=== PATIENT | female | born 1985 | race Caucasian/White ===

== ENCOUNTER → 2017-08-26 | Outpatient (CLI) | payer OTHER ==
[2017-08-26 14:31] LABS: ALBUMIN 3.8 GM/DL (3.2-5.2); ALBUMIN/GLOBULIN RATIO 1.19 (1.00-1.93); BILIRUBIN,TOTAL 0.5 MG/DL (0.2-1.0); CALCIUM LEVEL 8.9 MG/DL (8.5-10.1); CREATININE FOR GFR 1.2 MG/DL (0.55-1.02); GLOMERULAR FILTRATION RATE 55.4 (>60); POTASSIUM SERUM 4.6 MEQ/L (3.5-5.1)
== END ==
LOC: M SMT 10:02
PROVIDERS: ATTEND Physician Assistant Medical
DX: R53.83 Other fatigue (principal)

== ENCOUNTER → 2017-09-13 | Outpatient (REF) | payer OTHER | LOC: M LAB REF 16:54 | PROVIDERS: ATTEND Physician Assistant Medical | DX: R35.0 Frequency of micturition (principal) ==

== ENCOUNTER → 2017-10-12 | Outpatient (REF) | payer OTHER ==
[2017-10-12 13:32] LABS: FREE T4 1.08 NG/DL (0.76-1.46)
== END ==
LOC: M LAB REF 12:39
DX: E87.2 Acidosis (principal); N18.3 Chronic kidney disease, stage 3 (moderate)
CPT/HCPCS: 84443

== ENCOUNTER → 2018-05-22 | Outpatient (REF) | payer OTHER ==
[2018-05-24 08:06] LABS: CYSTATIN C 0.91 mg/L (0.53-0.95)
== END ==
LOC: M LAB REF 13:33
DX: R94.4 Abnormal results of kidney function studies (principal)
CPT/HCPCS: 81229

== ENCOUNTER → 2019-02-27 | Outpatient (REF) | payer OTHER | LOC: M WUC 12:50 | PROVIDERS: ATTEND Physician Assistant | DX: N39.0 Urinary tract infection, site not specified (principal) ==

== ENCOUNTER → 2019-06-12 | Outpatient (CLI) | payer OTHER ==
[2019-06-12 17:22] LABS: ALBUMIN 3.5 GM/DL (3.2-5.2); ALT/SGPT 19 U/L (12-78); BASO % 0.4 % (0.0-1.0); BILIRUBIN,TOTAL 0.2 MG/DL (0.2-1.0); BLOOD UREA NITROGEN 8 MG/DL (7-18); CALCIUM LEVEL 9.1 MG/DL (8.5-10.1); CARBON DIOXIDE LEVEL 25 MEQ/L (21-32); CHLORIDE LEVEL 106 MEQ/L (98-107); CREATININE FOR GFR 0.86 MG/DL (0.55-1.30); EOS # 0.1 10^3/uL (0.0-0.50); EOS % 0.7 % (0.0-3.0); GLOMERULAR FILTRATION RATE > 60.0 (>60); GLUCOSE, FASTING 70 MG/DL (70-100); HEMATOCRIT 37.8 % (36.0-47.0); HEMOGLOBIN 12.9 g/dl (12.0-15.5); LYMPH # 2.1 10^3/uL (1.5-4.5); LYMPH % 19.7 % (24.0-44.0); MEAN CORPUSCULAR HGB CONC 34.1 g/dl (32.0-36.5); MEAN CORPUSCULAR VOLUME 93.8 fl (80.0-96.0); MONO # 0.7 10^3/uL (0.0-0.8); MONO % 6.2 % (0.0-5.0); NEUTROPHILS # 7.7 10^3/uL (1.8-7.7); NEUTROPHILS % 72.5 % (36.0-66.0); PLATELET COUNT, AUTOMATED 263 10^3/uL (150-450); POTASSIUM SERUM 3.9 MEQ/L (3.5-5.1); RED BLOOD COUNT 4.03 10^6/uL (4.00-5.40); SODIUM LEVEL 139 MEQ/L (136-145); TOTAL PROTEIN 6.8 GM/DL (6.4-8.2); WHITE BLOOD COUNT 10.5 10^3/uL (4.0-10.0)
[2019-06-12 17:45] LABS: TOTAL PROTEIN,RANDOM URINE 11.9 MG/DL (0.0-12.0)
[2019-06-13 10:05] LABS: RUBELLA IgG QUALITATIVE IMMUNE (IMMUNE)
[2019-06-13 10:34] LABS: HEPATITIS C VIRUS ABY INDEX < 0.0 INDEX (<0.8)
[2019-06-13 10:35] LABS: HIV 1&2 SCREEN CENTAUR NEGATIVE (NEGATIVE)
[2019-06-13 13:04] LABS: CHLAMYDIA DNA AMPLIFICATION NEGATIVE (NEGATIVE); GC DNA AMPLIFICATION NEGATIVE (NEGATIVE)
== END ==
LOC: M SMT 13:23
PROVIDERS: ATTEND Obstetrics & Gynecology
DX: Z34.81 Encounter for supervision of other normal pregnancy, first trimester (principal); N18.9 Chronic kidney disease, unspecified; Z3A.00 Weeks of gestation of pregnancy not specified

== ENCOUNTER → 2019-07-10 | Outpatient (CLI) | payer OTHER | LOC: M SMT 09:51 | PROVIDERS: ATTEND Obstetrics & Gynecology | DX: Z34.82 Encounter for supervision of other normal pregnancy, second trimester (principal); Z3A.00 Weeks of gestation of pregnancy not specified ==

== ENCOUNTER → 2019-08-20 | Outpatient (CLI) | payer OTHER ==
--- NOTE | 2019-08-21 03:36 | REP ---
Clinical: Anatomical evaluation. Comparison: None . Findings: Examination demonstrates a single live intrauterine in variable presentation. motion is identified by technologist. Placenta is noted posterior and grade zero without evidence for placenta previa or abruption. Amniotic fluid volume is normal. Cervix measures 4.8 cm in length and appears closed. No evidence for nuchal cord. Gestational age by LMP 18 week 6 days with SAGRARIO 01/15/2020 . Gestational age by current measurements 19 weeks 0 days with SAGRARIO 01/14/2020 . FHR equals 141 beats per minute. BPD 4.3 cm 18-week 6 days HC 16.0 cm 18 weeks 6 days AC 13.8 cm 19 weeks 1 day FL 2.8 cm 18 weeks 5 days HL 2.8 cm 19 weeks 1 day HC/AC ratio 1.16 Estimated weight 266 grams ( 49th percentile). Anatomical assessment demonstrates normal structures including cranium, choroid plexus, cavum, cerebellum/posterior fossa, facial features, lungs, four-chamber heart/ventricular outflow tracts, diaphragm, stomach, cord insertion/three-vessel cord, kidneys/bladder, and extremities. Impression: 1. Single live intrauterine in variable presentation demonstrating appropriate interval growth. 2. Limited evaluation the spine. Remainder of the anatomical assessment is complete and normal. Electronically Signed by Jared Bustos MD 08/21/2019 03:28 A
== END ==
LOC: M RAD 08:24
PROVIDERS: ATTEND Advanced Practice Midwife
DX: Z36.9 Encounter for antenatal screening, unspecified (principal); Z3A.19 19 weeks gestation of pregnancy

== ENCOUNTER → 2019-09-12 | Outpatient (CLI) | payer OTHER ==
--- NOTE | 2019-09-12 12:16 | REP ---
Clinical: Anatomical evaluation. Comparison: 08/20/2019 . Findings: Examination demonstrates a single live intrauterine in cephalic presentation. motion is identified by technologist. Placenta is noted posterior and grade I without evidence for placenta previa or abruption. Amniotic fluid volume is normal. Cervix measures 5.2 cm in length and appears closed. No evidence for nuchal cord. Gestational age by LMP 22 weeks 1 day with SAGRARIO 01/15/2020 . Gestational age by current measurements 22 weeks 0 days with SAGRARIO 01/16/2020 . FHR equals 140 beats per minute. Estimated weight 477 grams ( 46 percentile). Anatomical assessment demonstrates normal structures including cranium, choroid plexus, cavum, cerebellum/posterior fossa, facial features, lungs, four-chamber heart/ventricular outflow tracts, diaphragm, stomach, cord insertion/three-vessel cord, kidneys/bladder, spine, and extremities. Impression: Single live intrauterine in cephalic presentation demonstrating appropriate interval growth. Anatomical assessment is complete and normal. No gross abnormalities are identified. Electronically Signed by Jared Bustos MD 09/12/2019 10:27 A
== END ==
LOC: M RAD 09:32
PROVIDERS: ATTEND Obstetrics & Gynecology
DX: Z34.82 Encounter for supervision of other normal pregnancy, second trimester (principal)

== ENCOUNTER → 2019-10-15 | Outpatient (CLI) | payer OTHER ==
[2019-10-15 13:23] LABS: HEMATOCRIT 36.9 % (36.0-47.0); HEMOGLOBIN 12.1 g/dl (12.0-15.5); MEAN CORPUSCULAR HEMOGLOBIN 31.1 pg (27.0-33.0); MEAN CORPUSCULAR HGB CONC 32.8 g/dl (32.0-36.5); MEAN CORPUSCULAR VOLUME 94.9 fl (80.0-96.0); PLATELET COUNT, AUTOMATED 241 10^3/uL (150-450); RED BLOOD COUNT 3.89 10^6/uL (4.00-5.40); WHITE BLOOD COUNT 11.5 10^3/uL (4.0-10.0)
== END ==
LOC: M PLALAB 11:06
PROVIDERS: ATTEND Advanced Practice Midwife
DX: Z34.93 Encounter for supervision of normal pregnancy, unspecified, third trimester (principal)

== ENCOUNTER → 2019-12-19 | Outpatient (REF) | payer OTHER ==
[2019-12-19 12:18] LABS: HEMATOCRIT 37.7 % (36.0-47.0); HEMOGLOBIN 12.3 g/dl (12.0-15.5); MEAN CORPUSCULAR HEMOGLOBIN 29.5 pg (27.0-33.0); MEAN CORPUSCULAR HGB CONC 32.6 g/dl (32.0-36.5); MEAN CORPUSCULAR VOLUME 90.4 fl (80.0-96.0); PLATELET COUNT, AUTOMATED 255 10^3/uL (150-450); RED BLOOD COUNT 4.17 10^6/uL (4.00-5.40); WHITE BLOOD COUNT 12.5 10^3/uL (4.0-10.0)
[2019-12-19 12:38] LABS: ALT/SGPT 18 U/L (12-78); BILIRUBIN,TOTAL 0.6 MG/DL (0.2-1.0); GLOMERULAR FILTRATION RATE > 60.0 (>60); LDH LACTATE DEHYDROGENASE 196 U/L (84-246); URIC ACID 4.2 MG/DL (2.6-6.0)
[2019-12-19 12:41] LABS: CREATININE,RANDOM URINE 51.5 MG/DL; TOTAL PROTEIN,RANDOM URINE 11.8 MG/DL (0.0-12.0)
== END ==
LOC: M PLALAB 09:32
PROVIDERS: ATTEND Obstetrics & Gynecology
DX: Z3A.36 36 weeks gestation of pregnancy (principal); O16.3 Unspecified maternal hypertension, third trimester

== ENCOUNTER 2019-12-31 07:55 | Outpatient (CLI) | payer OTHER ==
[~2019-12-31] VITALS: Ht 165.1 cm; Wt 85.6 kg
[2019-12-31] MEDS ORDERED: MAPA500T2 PO (08:12)
[2019-12-31] MEDS ORDERED: PRENTAB9 PO (08:12)
[2019-12-31 08:19] VITALS: BP 118/66
[2019-12-31] MEDS ORDERED: LOPERAMIDE 2 MG CAPLET PO ONE (08:45)
[2019-12-31] MEDS ORDERED: ONDANSETRON 4 MG ORAL DISINTEGRATING TAB (Q0162 PER 1MG) PO ONE (08:45)
--- NOTE | 2019-12-31 09:16 | IPNPDOC ---
Text Note Date of Service The patient was seen on 12/31/19. NOTE Subjective: Patient is a 24-year-old female who is a at 37.6 weeks gestation with an SAGRARIO of 01/15/20 who presents to L&D with complaints of cramping, diarrhea, and nausea. She denies a fever. She reports her symptoms started about 1 am this morning and has kept her up. She denies anyone else is sick in her house. She has had a few elevated BP's in the office and is normotensive today. The patient denies any pre-eclamptic symptom. Objective: VS: see below. FHR 120, moderate variability, positive accelerations, no decelerations. Contractions: every 2 to 5 minutes. SVE: 1/50/-3, mid- position, soft, no show. Contractions palpate mild with contractions. A+O x3. Respiratory rate is regular with no use of accessory muscles. Abdomen gravid with no tenderness with palpation. Assessment: IUP at 37.6 weeks gestation, diarrhea and nausea related to early latent labor or gastroenteritis, AMA, Category I FHR tracing Plan: Zofran and Imodium ordered. Patient encouraged hydration and small meals. Will be discharged to home. Reviewed access to care, kick count, labor signs, preeclamptic signs, abruption signs and danger signs to report. Patient encouraged to call with fever, worsening symptoms, or labor. VS,Hoda, I+O VS, Hoda, I+O Vital Signs Date Time Temp Pulse Resp B/P (MAP) Pulse Ox O2 Delivery O2 Flow Rate FiO2 12/31/19 08:19 98.6 71 18 118/66 (83) Room Air MAYA PRESCOTT CNM Dec 31, 2019 09:16
== END 2019-12-31 09:27 | disposition home or self-care (01) ==
LOC: M LDO 07:55
PROVIDERS: ATTEND Advanced Practice Midwife
DX: O99.89 Other specified diseases and conditions complicating pregnancy, childbirth and the puerperium (principal); Z3A.37 37 weeks gestation of pregnancy; R11.2 Nausea with vomiting, unspecified; R19.7 Diarrhea, unspecified
CPT/HCPCS: 59025; G0378; G0463

== ENCOUNTER 2020-01-15 00:07 | Inpatient (IN) | payer OTHER ==
[2020-01-15] VITALS (13 sets, daily range): BP systolic 125–166; BP diastolic 59–91
[~2020-01-15] VITALS: Ht 172.7 cm; Wt 61.8 kg
[~2020-01-15 00:07] MED LIST: MAPA500T2 PO; PRENTAB9 PO
[2020-01-15] MEDS ORDERED: LACTATED RINGER'S 1000 ML IV STA (00:27)
[2020-01-15] MEDS ORDERED: LR 1,000 ML IV SCH (00:27)
--- NOTE | 2020-01-15 00:43 | HPEPDOC ---
Obstetrical History & Physical General Date of Admission 01/15/20 Primary Care Physician: MAYA PRESCOTT CNM History of Present Illness Carolina is a 34-year-old female who is a at 40 weeks gestation with an SAGRARIO of 01/15/20 based off of her LMP and consistent with her first trimester u ltrasound. Her has been complicated by AMA status. She presents to L&D with complaints of regular, painful contractions. She reports active movement. She denies leaking of fluid or vaginal bleeding. Chief Complaint: Active Labor Information Provided By: Patient Age: 34 : 2 Term: 1 Pre-term: 0 Abortions: 0 Livin Care Care: Good Care Dating Final EDC: Jan 15, 2020 Final EDC by: LMP EGA at Admission: 40 Antepartum Course Diagnos(e)s AMA Height (inches): 65 Pre- weight (lbs.): 161 Admission Weight (lbs.): 192 Change in Weight (lbs.): 31 Past Medical History Past Obstetrical History : Past Obstetrical History: Primgravida Gestation: 39.3 Type of Delivery: Spontaneous Vaginal Del. 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 History: Human papillomavirus(HPV) Past Medical History Medical History seasonal allergies Surgical History: Other (breast augmentation) Family History Significant Family History: Hypertension, Hyperlipidemia, Other (anemia) Social History Marital Status: Family situation: Spouse/partner home Psychosocial History: No pertinent psych hx * Smoker: non-smoker Alcohol: Denies Drugs: denies Abuse Violence Screening Have you been hit/kicked/slapp: No Have you been sexually assault: No Allergies Coded Allergies: Sulfa (Sulfonamide Antibiotics) (Verified Allergy, Mild, STATES SHE BREAKS OUT IN RASH AND HIVES, 12/31/19) Medications Scheduled No.137/Iron/Folic Acd ( Vitamin Tablet) 1 Each Tablet, 1 TAB PO DAILY Miscellaneous Medications Acetaminophen (Mapap) 500 Mg Tablet, 1,000 MG PO Physical Examination Physical Examination GENERAL: Alert and oriented times three. BREAST: . ABDOMEN: Gravid and non-tender to touch. FETUS: Is vertex (VTX) by sterile vaginal examination (SVE), fetus is vertex (VTX) by Titi. HEART RATE: Regular rate and rhythm. LUNGS: Clear to auscultation (CTA). EXTREMITIES: No edema. No clonus. Deep tendon reflexes (DTRs) + . Laboratory Data Urine Culture: No Growth Pertinent Laboratoy Data Blood Type: A+ RBC Antibody Screen: Negative HIV: Negative Hepatitis B: Negative Hepatitis C: Negative Rapid Plasma Reagin: Nonreactive Rubella: Immune Chlamydia/Gonorrhea: Negative Group B Streptococcus: Negative Diag/Inter Therapy NIPT low risk, normal male Vaginal Examination Dilation: 4 cm (4-5 cm) Effacement: 90% Station: -1 Cervical Consistency: Soft Cervical Position: Middle Presentation: Cephalic presentation Position: Vertex (occiput) Assessment Heart Rate (FHR): 140 Variability: Moderate Accelerations: Positive Decelerations: Early Tocometer Contractions: Yes Frequency: regular Multi-drug resistant Organism: No history of MDRO Assessment/Plan Assessment IUP at 40 weeks gestation active labor GBS negative Category I FHR tracing AMA Plan Admit to L&D. OOB ad nicolas Diet: clears. Group B Streptococcus (GBS) negative. Labs and intravenous (IV) per unit protocol. Anesthesia consult per patient's request. Lactated Ringers (LR): Bolus 800 mL, then at 125 mL/hr. Anticipate cervical change and normal spontaneous delivery (). C-S as appropriate. MAYA PRESCOTT CNM Jan 15, 2020 00:42
[2020-01-15 00:59] LABS: HEMATOCRIT 36.6 % (36.0-47.0); HEMOGLOBIN 12.4 g/dl (12.0-15.5); MEAN CORPUSCULAR HEMOGLOBIN 29.5 pg (27.0-33.0); MEAN CORPUSCULAR HGB CONC 33.9 g/dl (32.0-36.5); MEAN CORPUSCULAR VOLUME 86.9 fl (80.0-96.0); PLATELET COUNT, AUTOMATED 257 10^3/uL (150-450); RED BLOOD COUNT 4.21 10^6/uL (4.00-5.40); WHITE BLOOD COUNT 18.8 10^3/uL (4.0-10.0)
[2020-01-15] MEDS ORDERED: FENTANYL 2MCG/ML ROPIVACAINE 0.2% IN 0.9% NACL 100ML IVBAG As Ordered ONE (01:20)
[2020-01-15] MEDS ORDERED: OXYTOCIN 30 UNITS IN 0.9% NaCl 500ML IV BAG (J2590) As Ordered ONE (01:44)
[2020-01-15] MEDS ORDERED: OXYTOCIN DRIP 30 UNITS in IV 1 EA IV SCH (02:49)
--- NOTE | 2020-01-15 02:59 | DNPDOC ---
[facility] Delivery Note Delivery Note DATE OF DELIVERY: 01/15/20 at 0228 PREDELIVERY DIAGNOSIS: 40-1/7 weeks' gestation and labor. POST DELIVERY DIAGNOSIS: Delivered. 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 ESTIMATED BLOOD LOSS: 200 mL. FINDINGS: 7 pounds 6 ounces; 3340 grams; male , Score 8/9, precipitous labor. DELIVERY SUMMARY: Patient is a 34-year-old female who is now a who presented to L&D in active labor. She spontaneously ruptured at 0147 to a scant amount of clear fluid. She progressed to fully dilated at 0207 and pushed to a living male in the YESSENIA position with restitution to ROT. The anterior shoulder delivered with ease and the corpus immediately followed. The baby was placed [id number] on the maternal abdomen active and crying. The cord was clamped after pulsation ceased and cut by the FOB. A 3-vessel cord was noted. The placenta delivered spontaneously and intact at 0234. Uterine hemostasis was achieved via fundal massage and 10 units of IM Pitocin into right thigh as patient's IV was pulled out during pushing stage. The vagina , perineum, and cervix was inspected and found to be intact. Mom plans to breast feed and baby was able to latch in the room. They are naming him Neftali. Both mom and baby are in stable condition. All counts of instruments and laps are correct. MAYA GUERIN CNM Jan 15, 2020 02:58
[2020-01-15] MEDS ORDERED: MEASLES,MUMPS,RUBELLA VACCINE INJ (MMR-II) (90707) SC SCH (03:00)
[2020-01-15] MEDS ORDERED: RHOGAM 300 MCG (1500 IU) INJ (J2790) IM SCH (03:00)
[2020-01-15] MEDS ORDERED: IBUPROFEN 600 MG TAB PO PRN (03:00)
[2020-01-15] MEDS ORDERED: METHYLERGONOVINE MALEATE 0.2 MG TAB PO PRN (03:00)
[2020-01-15] MEDS ORDERED: OXYTOCIN INJ 10 UNITS/ML VIAL (J2590) IM ONE (03:00)
[2020-01-15] MEDS ORDERED: ACETAMINOPHEN TAB 650MG DOSE (2X325MG) PO PRN (03:00)
[2020-01-15] MEDS ORDERED: DIBUCAINE 1% OINTMENT 30GM TOP PRN (03:00)
[2020-01-15] MEDS ORDERED: DOCUSATE SODIUM 100 MG CAP PO PRN (03:00)
[2020-01-15] MEDS: IBUPROFEN 800 MG TAB PO PRN ×3 (03:01→21:31)
[2020-01-15] MEDS: ACETAMINOPHEN 500 MG TAB PO PRN ×3 (03:01→15:06)
[2020-01-15] MEDS ORDERED: EPIDURAL/PCA KEYS XX PRN (07:15)
[2020-01-15] MEDS ORDERED: NALOXONE INJ 0.4 MG/1 ML VIAL (J2310) IV PRN (07:15)
[2020-01-15] MEDS ORDERED: EPIDURAL COMMENT XX SCH (07:15)
[2020-01-15] MEDS ORDERED: FENTANYL/ROPIVACAINE/NACL BAG 100 ML EPIDURAL SCH (07:15)
[2020-01-15] MEDS ORDERED: REFRIGERATOR IV KEYS XX PRN (07:15)
[2020-01-15] MEDS ORDERED: ONDANSETRON 4MG/2ML VIAL (J2405) IV PRN (07:15)
[2020-01-15] MEDS ORDERED: diphenhydrAMINE INJ 50MG/ML VIAL (J1200) IV PRN (07:15)
[2020-01-15] MEDS: PRENATAL VITAMINS CHEWABLE TABLET PO SCH (09:04)
[2020-01-16] MEDS: IBUPROFEN 800 MG TAB PO PRN (05:33)
[2020-01-16 06:00] VITALS: BP 129/78
[2020-01-16] MEDS: PRENATAL VITAMINS CHEWABLE TABLET PO SCH (08:52)
[2020-01-16] MEDS: ACETAMINOPHEN 500 MG TAB PO PRN (08:52)
== END 2020-01-16 12:45 | disposition home or self-care (01) | DRG 807 ==
LOC: M LDO 00:07 → M LDI 00:32 → M OBS 04:31
PROVIDERS: ADMIT Advanced Practice Midwife; ATTEND Advanced Practice Midwife
PROC: 10E0XZZ Delivery of Products of Conception, External Approach (ICD-10-PCS; principal; 2020-01-15)
DX: O62.3 Precipitate labor (principal); Z37.0 Single live birth; Z3A.40 40 weeks gestation of pregnancy

== ENCOUNTER → 2020-06-13 | Outpatient (REF) | payer OTHER | LOC: M LAB REF 15:40 | PROVIDERS: ATTEND Advanced Practice Midwife | DX: Z12.4 Encounter for screening for malignant neoplasm of cervix (principal); R87.615 Unsatisfactory cytologic smear of cervix ==